=== PATIENT | male | born 1960 | race Caucasian/White ===

== ENCOUNTER 2018-03-12 16:58 | Inpatient (IN) | payer MEDICAID, OTHER ==
[2018-03-12 16:58] VITALS: BMI 26.6
[2018-03-12 19:09] LABS: BASO % 0.6 % (0.0-2.0); EOS # 0.4 K/uL (0.0-0.7); EOS % 5.5 % (0.0-4.0); HEMOGLOBIN 13.6 g/dL (12.0-18.0); LYMPH # 2.2 K/uL (1.0-4.3); LYMPH % 28.1 % (20.0-40.0); MEAN CORPUSCULAR HEMOGLOBIN 31.9 pg (27.0-31.0); MEAN CORPUSCULAR HGB CONC 33.2 g/dL (33.0-37.0); MEAN PLATELET VOLUME 7.4 fL (7.2-11.7); MONO # 0.4 K/uL (0.0-0.8); MONO % 5.4 % (0.0-10.0); NEUT # 4.6 K/uL (1.8-7.0); NEUT % 60.4 % (50.0-75.0); NRBC % 0.1 % (0.0-2.0); RBC 4.26 Mil/uL (4.40-5.90); RED CELL DISTRIBUTION WIDTH 12.6 % (11.5-14.5); WHITE BLOOD COUNT 7.7 K/uL (4.8-10.8)
--- NOTE | 2018-03-12 19:09 | C.PDOC ---
History Of Present Illness 57 y/o male presents to the ED requesting detox from heroin and cocaine. States he usually sniffs heroin, 30 bags daily for 10 years. Patient reports his last use was this morning. Otherwise he denies any physical complaints. Time Seen by Provider: 03/12/18 18:34 Chief Complaint (Nursing): Substance Abuse History Per: Patient History/Exam Limitations: no limitations Onset/Duration Of Symptoms: Days Current Symptoms Are (Timing): Still Present Suicide/Self Injury Attempted (Context): None Modifying Factor(s): Other (Heroin) Past Medical History Reviewed: Historical Data, Nursing Documentation, Vital Signs Vital Signs: Last Vital Signs Temp 98.2 F 03/12/18 17:02 Pulse 93 H 03/12/18 17:02 Resp 18 03/12/18 17:02 BP 108/70 03/12/18 17:02 Pulse Ox 97 03/12/18 19:10 - Medical History PMH: Denies: Diabetes, Hepatitis, HIV, HTN, Seizures, Sexually Transmitted Disease Other PMH: Heroin abuse - [facility] Procedures DETOXIFICATION SERVICES FOR SUBSTANCE ABUSE TREATMENT (02/03/16) GROUP PSYCHOTHERAPY (02/03/16) INJECT/INFUSE NEC (12/21/12) MEDICATION MANAGEMENT (02/03/16) MEDS MGMT FOR SUBSTANCE ABUSE TREATMENT, METHADONE MAINT (02/03/16) MEDS MGMT FOR SUBSTANCE ABUSE TREATMENT, OTH REPL MED (02/03/16) Family History: States: Unknown Family Hx - Social History Hx Tobacco Use: Yes Hx Alcohol Use: No Hx Substance Use: Yes - Immunization History Hx Tetanus Toxoid Vaccination: No Hx Influenza Vaccination: No Hx Pneumococcal Vaccination: No Review Of Systems Except As Marked, All Systems Reviewed And Found Negative. Constitutional: Negative for: Fever, Chills Gastrointestinal: Negative for: Nausea, Vomiting Psych: Positive for: Other (substance abuse). Negative for: Suicidal ideation, Withdrawal Physical Exam - Physical Exam Appears: Non-toxic, No Acute Distress Skin: Normal Color, Warm, Dry Head: Atraumatic, Normacephalic Eye(s): bilateral: Normal Inspection Oral Mucosa: Moist Neck: Normal ROM, Supple Chest: Symmetrical Cardiovascular: Rhythm Regular, No Murmur Respiratory: Normal Breath Sounds, No Rales, No Rhonchi, No Wheezing Gastrointestinal/Abdominal: Soft, No Tenderness, No Distention Extremity: Bilateral: Atraumatic, Normal Color And Temperature, Normal ROM Pulses: Left Radial: Normal, Right Radial: Normal Neurological/Psych: Oriented x3, Normal Speech ED Course And Treatment - Laboratory Results Result Diagrams: 03/12/18 19:03 03/12/18 19:03 Lab Interpretation: No Acute Changes O2 Sat by Pulse Oximetry: 97 (RA) Pulse Ox Interpretation: Normal Progress Note: Patient is medically cleared for a detox admission. Medical Decision Making Medical Decision Making: Impression: 57 y/o male requesting detox Plan: --CMP --CBC --UDS --UA --alcohol serum home mission worker to evaluate patient and screen for detox. Labs reviewed. Disposition - Disposition Disposition: HOSPITALIZED Disposition Time: 21:45 Condition: STABLE - POA Present On Arrival: None - Clinical Impression Clinical Impression: Opiate abuse, continuous - Scribe Statement The provider has reviewed the documentation as recorded by the Scribe (Loreto Gordon) Provider Attestation: All medical record entries made by the Scribe were at my direction and personally dictated by me. I have reviewed the chart and agree that the record accurately reflects my personal performance of the history, physical exam, medical decision making, and the department course for this patient. I have also personally directed, reviewed, and agree with the discharge instructions and disposition.
[2018-03-12 19:19] LABS: ALB/GLOB RATIO 1.2 (1.0-2.1); ALBUMIN 4.2 g/dL (3.5-5.0); CALCIUM 8.8 mg/dl (8.6-10.4); GFR AFRICAN-AMERICAN > 60; GFR NON-AFRICAN AMERICAN > 60
[2018-03-12 19:21] LABS: ALT/SGPT 20 U/L (21-72); AST/SGOT 27 U/L (17-59); BLOOD UREA NITROGEN 12 mg/dL (9-20)
[2018-03-12 20:47] LABS: URINE BACTERIA RARE (<OCC); URINE BILIRUBIN NEGATIVE (NEGATIVE); URINE BLOOD NEGATIVE (NEGATIVE); URINE CLARITY Clear (Clear); URINE COLOR Yellow (YELLOW); URINE GLUCOSE (UA) NORMAL (Normal); URINE LEUKOCYTE ESTERASE NEG Leu/uL (Negative); URINE PROTEIN NEGATIVE (NEGATIVE)
[2018-03-12 20:56] LABS: BARBITURATES, UR NEGATIVE (NEGATIVE); BENZODIAZEPINES, UR NEGATIVE (NEGATIVE); PHENCYCLIDINE, UR NEGATIVE (NEGATIVE)
[2018-03-12 20:57] LABS: OPIATES, UR POSITIVE (NEGATIVE)
--- NOTE | 2018-03-12 23:12 | PCM.BM ---
Treatment Plan Problems - Problems identified on initial assessmt potential for opiate withdrawal Date Initiated: 03/12/18 Time Initiated: 23:10 Status: Active Treatment assets and liabiliti Patient Assests: cognitively intact Patient Liabilities: substance abuse, medical problems - Milieu Protocol Maintain good personal hygiene: daily Encourage regular showers, daily Remind patient to perform daily oral care, daily Assist patient to perform ADL's Conduct patient checks and document Observation sheet: Q15 minutes Maintain personal safety: every shift Educate patient to report safety concerns to staff, every shift Monitor environment for contraband/sharps Medication safety: Monitor for expected outcome, potential side effects: every shift, Assess barriers to learning: every shift, Assess readiness for medication education: every shift
[2018-03-12] MEDS ORDERED: Aluminum Hydroxide/Magnesium Hydroxide Susp (30 mL) PO PRN (23:27)
[2018-03-12 23:41] VITALS: RESP 18
--- NOTE | 2018-03-13 12:54 | PCM.PSYCH ---
Initial Psychiatric Evaluation - Initial Psychiatric Evaluation Type of Admission: Voluntary Legal Status: Capacity Chief Complaint (in patient's own words): "I messed up" History of Present Illness and Precipitating Events: The pt is seen, chart reviewed and case discussed. He is known from a previous admission to detox. 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 He admits to using up to 40 bags of heroin a day intranasally. Started back in 1974 but this is his third detox. He was at [facility] few years ago but left early and blames their then-administration. He also used PCP, MJ and cocaine in the past but denies them now even though he is positive for cocaine. He claims it must be in the heroin bag. Denies psych sxs but he looks hypomanic and he likely has substance-induced mood symptoms He also has a history of binge drinking Past psych hx: Hx of depression and suicidality but not very recently, not on meds, denies SI now Medical hx: Denies Family psych hx: Denies Current Medications: Active Medications Generic Name Dose Route Start Last Admin Trade Name Freq PRN Reason Stop Dose Admin Al Hydrox/Mg Hydrox/Simethicone 30 ml 03/12/18 23:27 Maalox 30 Ml PO TID PRN Indigestion / Heartburn Clonidine HCl 0.1 mg 03/12/18 23:27 Catapres PO Q8 PRN COWS Score More or Equal to 5 Hydroxyzine HCl 25 mg 03/12/18 23:14 03/13/18 09:03 Atarax PO 25 mg Q6H PRN Administration Anxiety Ibuprofen 600 mg 03/12/18 23:14 Motrin Tab PO Q6H PRN Pain, moderate (4-7) Loperamide HCl 2 mg 03/12/18 23:27 Imodium PO Q8 PRN Diarrhea Ondansetron HCl 4 mg 03/12/18 23:27 Zofran Tab PO Q8 PRN Nausea/Vomiting Trazodone HCl 100 mg 03/12/18 23:14 Desyrel PO HS PRN Insomnia Past Psychiatric History - Past Psychiatric History Previous Treatment History: None Pertinent Medical Hx (Current Medical&Sleep Prob, Allergies): Allergies Allergy/AdvReac Type Severity Reaction Status Date / Time No Known Allergies Allergy Verified 09/17/16 15:01 No Known Home Med 03/12/18 Review of Systems - Neurological Neurological: Other - Psychiatric Psychiatric: Abnormal Sleep Pattern, Anxiety, Difficulty Concentrating, Irritability, Mood Swings. absent: Hallucinations, Homicidal Ideation, Suicidal Ideation Mental Status Examination - Personal Presentation Personal Presentation: Looks older than stated age - Affect Affect: Other (labile) - Motor Activity Motor Activity: Other (restless) - Reliability in Providing Information Reliability in Providing Information: Good - Speech Speech: Organized - Mood Mood: Depressed (mild), Anxious - Formal Thought Process Formal Thought Process: No Impairment - Cognitive Functions Orientation: Person, Place, Situation, Time Sensorium: Alert Attention/Concentration: Easily distracted Abstract Thinking: [place] Estimate of Intelligence: Average Judgement: Intact, as evidence by: Insight regarding need for hospitalization Memory: Recent intact, as evidence by: Ability to recall events of the day, Remote intact, as evidenced by: Abilit to recall sig. life events - Risk Risk: Withdrawal, Diminished functioning - Strength & Assets Inventory Strength & Assets Inventory: Cooperative - Limitations Limitations: Living alone DSM 5 DX - DSM 5 DSM 5 Diagnosis: Opioid withdrawal Opioid use disorder, severe Substance-induced mood disorder r/o personality disorder Cocaine use d/o - unspecified severity Alcohol use d/o - unspecified severity - Recommended/Plan of Treatment Treatment Recommendations and Plan of Treatment: Methadone detox As needed medications Gabapentin for augmentation if needed All risks, benefits and alternatives of medications, including no medications, discussed and the patient understood and agreed. Attend groups and activities Supportive therapy and psychoeducation [place] for abstinence CBT for relapse prevention Encourage MAT Refer to rehab or IOP Attend self-help groups as well [place] for smoking cessation and patch if needed 34 min Projected ELOS: 4-5 days - Smoking Cessation Smoking Cessation Initiated: Yes
--- NOTE | 2018-03-14 23:39 | PCM.PYCHPN ---
Psychiatric Progress Note - Psychiatric Progress Note Patient seen today, length of contact: 15 min Patient Chief Complaint: I am still withdrawing.' Problems Identified/Issues Discussed: Patient seen and evaluated, chart reviewed and discussed with the nurse. He reports improvement in his irritability. He still reports withdrawal symptoms. He denies any AVH or any paranoia. Patient is compliant with medications and denies any side effects. Symptoms are improving but need more time to stabilize. Support and psychoeducation given. Medication Change: Yes Medical Record Reviewed: Yes Mental Status Examination - Cognitive Function Orientation: Person, Place, Situation, Time Memory: Intact Attention: WNL Concentration: Poor Association: WNL Fund of Knowledge: Poor - Mood Mood: Depressed (mild), Anxious - Affect Affect: Constricted - Speech Speech: Soft - Formal Thought Process Formal Thought Process: No Impairment - Suicidal Ideation Suicidal Ideation: No - Homicidal Ideation Homicidal Ideation: No Goal/Treatment Plan - Goal/Treatment Plan Need for Continued Stay: Severe depression anxiety, Severe functional impairment Progress Toward Problem(s) and Goals/Treatment Plan: Opioid withdrawal Opioid use disorder, severe Substance-induced mood disorder r/o personality disorder Cocaine use d/o - unspecified severity Alcohol use d/o - unspecified severity Methadone detox As needed medications Gabapentin for augmentation if needed All risks, benefits and alternatives of medications, including no medications, discussed and the patient understood and agreed. Attend groups and activities Supportive therapy and psychoeducation [place] for abstinence CBT for relapse prevention Encourage MAT Refer to rehab or IOP Attend self-help groups as well [place] for smoking cessation and patch if needed - Smoking Cessation Smoking Cessation Initiated: No
--- NOTE | 2018-03-15 20:44 | PCM.PYCHPN ---
Psychiatric Progress Note - Psychiatric Progress Note Patient seen today, length of contact: 15 min Patient Chief Complaint: I'm feeling better with the treatment. Problems Identified/Issues Discussed: Patient seen, chart reviewed, case discussed with the staff. Issues related to illness and treatment were discussed with the patient and staff. Reported compliant with treatment with no adverse affects. Tolerating treatment very well. Calm and cooperative. Mood reported as good. Affect appropriate. Reported feeling much better. Aftercare discussed with the patient. Patient was awake, alert and oriented 3. Denied any delusions, auditory or visual hallucinations, suicidal ideations or homicidal ideations at the time of evaluation. Medical Problems: None reported Diagnostic Results: Reviewed DSM 5 Symptoms Update: Improving with treatment Medication Change: No Medical Record Reviewed: Yes Mental Status Examination - Cognitive Function Orientation: Person, Place, Situation, Time Memory: Intact Attention: WNL Concentration: WNL Association: WN Fund of Knowledge: [facility] Decription of patient's judgement and insights: Fair - Mood Mood: Neutral - Affect Affect: Other (Appropriate) - Speech Speech: Soft - Formal Thought Process Formal Thought Process: No Impairment Psychotic Thoughts and Behaviors: None - Suicidal Ideation Suicidal Ideation: No - Homicidal Ideation Homicidal Ideation: No Goal/Treatment Plan - Goal/Treatment Plan Need for Continued Stay: Remain at risks for inpatient hospitalization, Discharge may exacerbated symptoms, Severe functional impairment Progress Toward Problem(s) and Goals/Treatment Plan: Patient education. Supportive therapy. CBT for relapse prevention. [place] for abstinence. Continue treatment as before. Estimated Date of D/C: 03/16/18 - Smoking Cessation Smoking Cessation Initiated: No
[2018-03-16 09:13] VITALS: BP 99/64; PULSE 64; TEMP 98.4; O2SAT 98
--- NOTE | 2018-03-16 17:49 | PCM.PYCHDC ---
Mental Status Examination - Mental Status Examination Orientation: Person, Place, Situation, Time Memory: Intact Mood: Neutral Affect: Other (Appropriate) Speech: Appropriate Attention: WNL Concentration: WNL Association: WNL Fund of Knowledge: WNL Formal Thought Process: No Impairment Description of patient's judgement and insight: Fair Psychotic Thoughts and Behaviors: None Suicidal Ideation: No Current Homicidal Ideation?: No Discharge Summary - Discharge Note Reason for Hospitalization: Opiate use disorder severe Cocaine use disorder Alcohol use disorder Substance-induced mood disorder Laboratory Data: Reviewed Consultations:: List each consultation separately and include: 1. Reason for request. 2. Findings. 3. Follow-up Summary of Hospital Course include:: 1. Description of specific treatment plan utilized for patients during their course of treatmen. 2. Summarize the time- course for resolution of acute symptoms and/or regressed behaviors. 3. Describe issues identified and worked on during hospitalization. 4. Describe medication utilized. 5. Describe medical problems identified and treated. 6. 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 He admits to using up to 40 bags of heroin a day intranasally. Started back in 1974 but this is his third detox. He was at [facility] few years ago but left early and blames their then-administration. He also used PCP, MJ and cocaine in the past but denies them now even though he is positive for cocaine. He claims it must be in the heroin bag. Denies psych sxs but he looks hypomanic and he likely has substance-induced mood symptoms He also has a history of binge drinking Past psych hx: Hx of depression and suicidality but not very recently, not on meds, denies SI now During his stay in the hospital patient was treated with methadone taper for opiate withdrawal symptoms. He was also started on other when necessary medications. Patient also attended groups during his stay on the unit. With the above treatment and interventions patient started feeling better. Today patient was stable and ready for discharge. At the time of evaluation and discharge, patient was stable, had no delusions, no auditory or visual hallucinations, no suicidal ideations or homicidal ideations. Patient was discharged in a stable condition. Patient will have follow-up with his doctor, Dr. Suarez. - Final Diagnosis (DSM 5) Condition upon Discharge: STABLE Disposition: HOME/ ROUTINE Follow-up Treatment Plan: With Dr. Suarez Prescriptions/Medication Reconciliation: traZODone [Desyrel] 100 mg PO HS PRN #30 tab PRN Reason: Insomnia - Smoking Cessation Smoking Cessation Medication prescribed: No - Antipsychotic Medications Pt discharged on 2 or more routine antipsychotic medications: No
== END 2018-03-16 13:30 | disposition home or self-care (01) | DRG 745 ==
LOC: C.ER 16:58 → C.9E 21:44 → C.7D 22:22
PROVIDERS: ADMIT Psychiatry & Neurology Psychiatry; ATTEND Psychiatry & Neurology Psychiatry
PROC: HZ2ZZZZ Detoxification Services for Substance Abuse Treatment (ICD-10-PCS; principal; 2018-03-12)
PROC: HZ59ZZZ Individual Psychotherapy for Substance Abuse Treatment, Supportive (ICD-10-PCS; 2018-03-12)
PROC: HZ46ZZZ Group Counseling for Substance Abuse Treatment, Psychoeducation (ICD-10-PCS; 2018-03-12)
PROC: GZ3ZZZZ Medication Management (ICD-10-PCS; 2018-03-12)
PROC: HZ80ZZZ Medication Management for Substance Abuse Treatment, Nicotine Replacement (ICD-10-PCS; 2018-03-12)
DX: F11.23 Opioid dependence with withdrawal (principal); F10.10 Alcohol abuse, uncomplicated; F14.10 Cocaine abuse, uncomplicated; F17.210 Nicotine dependence, cigarettes, uncomplicated; F11.24 Opioid dependence with opioid-induced mood disorder

== ENCOUNTER 2018-08-28 13:39 | Inpatient (IN) | payer MEDICAID ==
[2018-08-28 14:14] VITALS: BMI 23.6
[2018-08-28 14:42] LABS: BASO % 0.6 % (0.0-2.0); EOS # 0.4 K/uL (0.0-0.7); EOS % 9.1 % (0.0-4.0); HEMOGLOBIN 13.4 g/dL (12.0-18.0); LYMPH # 1.5 K/uL (1.0-4.3); LYMPH % 32.4 % (20.0-40.0); MEAN CELL VOLUME 97.8 fL (80.0-94.0); MEAN CORPUSCULAR HEMOGLOBIN 31.8 pg (27.0-31.0); MEAN CORPUSCULAR HGB CONC 32.5 g/dL (33.0-37.0); MEAN PLATELET VOLUME 7.1 fL (7.2-11.7); MONO # 0.4 K/uL (0.0-0.8); MONO % 9.2 % (0.0-10.0); NEUT # 2.2 K/uL (1.8-7.0); NEUT % 48.7 % (50.0-75.0); NRBC % 0.1 % (0.0-2.0); RBC 4.22 Mil/uL (4.40-5.90); RED CELL DISTRIBUTION WIDTH 12.8 % (11.5-14.5); WHITE BLOOD COUNT 4.5 K/uL (4.8-10.8)
[2018-08-28 14:48] LABS: SQUAMOUS EPITHIAL < 1 /hpf (0-5); URINE BILIRUBIN NEGATIVE (NEGATIVE); URINE BLOOD NEGATIVE (NEGATIVE); URINE CLARITY Clear (Clear); URINE COLOR Yellow (YELLOW); URINE GLUCOSE (UA) NORMAL (Normal); URINE LEUKOCYTE ESTERASE NEG Leu/uL (Negative); URINE PROTEIN NEGATIVE (NEGATIVE); URINE UROBILINOGEN NORMAL mg/dL (0.2-1.0)
[2018-08-28 14:55] LABS: ALB/GLOB RATIO 1.5 (1.0-2.1); ALBUMIN 4.5 g/dL (3.5-5.0); ALT/SGPT 18 U/L (21-72); AST/SGOT 26 U/L (17-59); BLOOD UREA NITROGEN 16 mg/dL (9-20); CALCIUM 8.6 mg/dl (8.6-10.4); GFR NON-AFRICAN AMERICAN > 60
[2018-08-28 15:34] LABS: BARBITURATES, UR NEGATIVE (NEGATIVE); BENZODIAZEPINES, UR NEGATIVE (NEGATIVE); PHENCYCLIDINE, UR NEGATIVE (NEGATIVE)
--- NOTE | 2018-08-28 16:06 | C.PDOC ---
History Of Present Illness 58 y/o male with a PMHx of heroin abuse, presents to the ED requesting detox. He last used this morning, via sniffing, denies IV drug abuse. States his last detox was 2 years ago. No withdrawal symptoms at present. He denies any SI/HI, fevers, cold sweats, tremors, bodyaches, or other associated complaints. Time Seen by Provider: 08/28/18 14:23 Chief Complaint (Nursing): Substance Abuse History Per: Patient History/Exam Limitations: no limitations Onset/Duration Of Symptoms: Days Current Symptoms Are (Timing): Still Present Modifying Factor(s): Other (Heroin) Past Medical History Reviewed: Historical Data, Nursing Documentation, Vital Signs Vital Signs: Last Vital Signs Temp 99 F 08/28/18 14:14 Pulse 81 08/28/18 14:14 Resp 18 08/28/18 14:14 BP 112/77 08/28/18 14:14 Pulse Ox 98 08/28/18 14:14 - Medical History PMH: Denies: Diabetes, Hepatitis, HIV, HTN, Seizures, Sexually Transmitted Disease Other Surgeries: Amputation left digit - [facility] Procedures DETOXIFICATION SERVICES FOR SUBSTANCE ABUSE TREATMENT (03/12/18) GROUP TEACHER ASST FOR SUBSTANCE ABUSE TREATMENT, PSYCHOEDUCATION (03/12/18) GROUP PSYCHOTHERAPY (02/03/16) INDIV PSYCHOTHERAPY FOR SUBSTANCE ABUSE TREATMENT, SUPPORT (03/12/18) INJECT/INFUSE NEC (12/21/12) MEDICATION MANAGEMENT (03/12/18) MEDS MGMT FOR SUBSTANCE ABUSE TREATMENT, METHADONE MAINT (02/03/16) MEDS MGMT FOR SUBSTANCE ABUSE TREATMENT, NICOTINE REPLACE (03/12/18) MEDS MGMT FOR SUBSTANCE ABUSE TREATMENT, OTH REPL MED (02/03/16) Family History: States: Unknown Family Hx - Social History Hx Tobacco Use: Yes Hx Alcohol Use: Yes Hx Substance Use: Yes (heroin) - Immunization History Hx Tetanus Toxoid Vaccination: No Hx Influenza Vaccination: No Hx Pneumococcal Vaccination: No Review Of Systems Constitutional: Negative for: Fever, Chills Cardiovascular: Negative for: Palpitations Respiratory: Negative for: Shortness of Breath Gastrointestinal: Negative for: Nausea, Vomiting Musculoskeletal: Negative for: Other (tremors) Neurological: Negative for: Weakness, Headache Psych: Positive for: Other (Substance abuse). Negative for: Suicidal ideation, Withdrawal Physical Exam - Physical Exam Appears: Non-toxic, No Acute Distress Skin: Warm, Dry Head: Atraumatic, Normacephalic Eye(s): bilateral: Normal Inspection, PERRL, EOMI Neck: Normal ROM Chest: Symmetrical Cardiovascular: Rhythm Regular, No Murmur Respiratory: Normal Breath Sounds, No Accessory Muscle Use, Other (Speaking in full sentences) Gastrointestinal/Abdominal: Soft, No Tenderness, No Distention Extremity: Bilateral: Atraumatic, Normal Color And Temperature Neurological/Psych: Oriented x3 Gait: Steady ED Course And Treatment - Laboratory Results Result Diagrams: 08/28/18 14:39 08/28/18 14:39 Lab Results: Total Bilirubin 0.4 mg/dL (0.2-1.3) 08/28/18 14:39 AST 26 U/L (17-59) 08/28/18 14:39 ALT 18 U/L (21-72) L 08/28/18 14:39 Alkaline Phosphatase 56 U/L (38-126) 08/28/18 14:39 Total Protein 7.5 g/dL (6.3-8.3) 08/28/18 14:39 Albumin 4.5 g/dL (3.5-5.0) 08/28/18 14:39 Globulin 3.0 gm/dL (2.2-3.9) 08/28/18 14:39 Albumin/Globulin Ratio 1.5 (1.0-2.1) 08/28/18 14:39 Urine Color Yellow (YELLOW) 08/28/18 14:39 Urine Clarity Clear (Clear) 08/28/18 14:39 Urine pH 5.0 (5.0-8.0) 08/28/18 14:39 Ur Specific [place] 1.023 (1.003-1.030) 08/28/18 14:39 Urine Protein Negative mg/dL (NEGATIVE) 08/28/18 14:39 Urine Glucose (UA) Normal mg/dL (Normal) 08/28/18 14:39 Urine Ketones Negative mg/dL (NEGATIVE) 08/28/18 14:39 Urine Blood Negative (NEGATIVE) 08/28/18 14:39 Urine Nitrate Negative (NEGATIVE) 08/28/18 14:39 Urine Bilirubin Negative (NEGATIVE) 08/28/18 14:39 Urine Urobilinogen Normal mg/dL (0.2-1.0) 08/28/18 14:39 Ur Leukocyte Esterase Neg Isaias/uL (Negative) 08/28/18 14:39 Urine WBC (Auto) 1 /hpf (0-5) 08/28/18 14:39 Urine RBC (Auto) < 1 /hpf (0-3) 08/28/18 14:39 Ur Squamous Epith Cells < 1 /hpf (0-5) 08/28/18 14:39 O2 Sat by Pulse Oximetry: 98 (RA) Pulse Ox Interpretation: Normal Medical Decision Making Medical Decision Making: Plan: Labs ordered for medical clearance. Crisis eval pending. 16:15 medically cleared for psych placement 16:[address] Escalante for opioid use disorder. Disposition Counseled Patient/Family Regarding: Studies Performed, Diagnosis - Disposition Disposition: HOSPITALIZED Disposition Time: 16:34 Condition: STABLE Forms: [facility] (Italian) - POA Present On Arrival: None - Clinical Impression Clinical Impression: Cocaine abuse, Opiate abuse, continuous - Scribe Statement The provider has reviewed the documentation as recorded by the Mell Gordon Provider Attestation: All medical record entries made by the Michelleibaudrey were at my direction and personally dictated by me. I have reviewed the chart and agree that the record accurately reflects my personal performance of the history, physical exam, medical decision making, and the department course for this patient. I have also personally directed, reviewed, and agree with the discharge instructions and disposition.
[2018-08-28 16:09] LABS: OPIATES, UR POSITIVE (NEGATIVE)
--- NOTE | 2018-08-28 16:51 | PCM.BM ---
<Alayna Albarado - Last Filed: 08/28/18 16:50> Treatment Plan Problems - Problems identified on initial assessmt Denial Date Initiated: 08/28/18 Time Initiated: 16:50 Assessment reference: NA Status: Active Defensive Coping Date Initiated: 08/28/18 Time Initiated: 16:50 Assessment reference: NA Status: Active Chronic Low Self Esteem Date Initiated: 08/28/18 Time Initiated: 16:51 Assessment reference: NA Status: Active Treatment assets and liabiliti Patient Assests: ADL independent, good support system, negotiates basic needs, cognitively intact Patient Liabilities: substance abuse (Heroin, cocaine), other (homelessness) - Milieu Protocol Maintain good personal hygiene: daily Encourage regular showers, daily Remind patient to perform daily oral care, daily Assist patient to perform ADL's Conduct patient checks and document Observation sheet: Q15 minutes Maintain personal safety: every shift Educate patient to report safety concerns to staff, every shift Monitor environment for contraband/sharps Medication safety: Monitor for expected outcome, potential side effects: every shift, Assess barriers to learning: every shift, Assess readiness for medication education: every shift <Elizabeth Mari - Last Filed: 08/29/18 14:30> Family Contact Family involvement: No known Family/SO - Goals for Treatment Patient goals for treatment: Complete detox and transition to a long-term inpatient program." Discharge/Continuing Care - Education Needs Education Needs: Patient Medication, Patient Diagnosis/Disease Process, Patient Coping Skills, Patient Anger Management skills, Patient Placement options, Patient Community resources - Discharge Discharge Criteria: Ability to care for self, No longer exhibiting s/s of withdrawal, Reduction of target symptoms Discharge to:: Substance Abuse Rehab - Treatment Team Participation Patient/Family/SO Statement: 08/29/18 14:30 "I wanna try the [facility] in [place] but not the one in [place]." Discussed with Family/SO: No Was Patient/Family/SO present at Treatment Team Meeting: Yes
[2018-08-28] MEDS ORDERED: Aluminum Hydroxide/Magnesium Hydroxide Susp (30 mL) PO PRN (19:10)
[2018-08-29] MEDS: Multiple Vitamins Tab PO SCH (09:14)
--- NOTE | 2018-08-29 16:20 | PCM.PSYCH ---
Initial Psychiatric Evaluation - Initial Psychiatric Evaluation Type of Admission: Voluntary Legal Status: Capacity Chief Complaint (in patient's own words): I need help for my substance use. History of Present Illness and Precipitating Events: Patient is a 58 years old, single, unemployed, homeless, -[place] male who was admitted due to withdrawing from heroine. Patient was poor historian. Most of the history obtained from the previous record. Opioid: Patient reported he started using heroin in 1974 at 15 years of age, increased gradually. Currently he was using 30 bags daily, sniffing. Last used yesterday, 2 bags. Longest period of abstinence for 7 months in 2018. History of 3 previous detox at [facility]. Patient was in [place] for about 3 months in the past but left [facility] blaming that administration was not doing well. Cocaine: He started using cocaine at 15 years of age, 1 g daily, sniffing. Last used yesterday. Patient also has history of binge drinking and cannabis and PCP use in the past but patient denied. According to old record, patient also had history of depression and suicidal attempts in the past but patient denied. Patient smokes half pack of cigarettes daily, denying nicotine patch. Patient was arrested in the past for credit card and driving license fraud and heroin charges. Not on probation. Patient was born in [place] and has 12th grade of education. Not working for last 1 year. Was working in construction. Patient is single and has no children. Currently homeless for last 1 year. His height is 5 feet 9 inches and weight is 162 pounds. Current Medications: Active Medications Generic Name Dose Route Start Last Admin Trade Name Freq PRN Reason Stop Dose Admin Al Hydrox/Mg Hydrox/Simethicone 30 ml 08/28/18 19:10 Maalox 30 Ml PO TID PRN Indigestion / Heartburn Clonidine HCl 0.1 mg 08/28/18 19:10 Catapres PO Q4 PRN COWS Score More or Equal to 5 Dicyclomine HCl 10 mg 08/28/18 19:10 Bentyl PO Q6 PRN Muscle spasm Folic Acid 1 mg 08/29/18 10:00 08/29/18 09:14 Folic Acid PO 1 mg DAILY LEATHA Administration Hydroxyzine HCl 25 mg 08/28/18 19:06 08/28/18 21:15 Atarax PO 25 mg Q6 PRN Administration Anxiety Loperamide HCl 2 mg 08/28/18 19:10 Imodium PO Q8 PRN Diarrhea Methadone HCl 20 mg 08/29/18 10:00 08/29/18 09:14 Methadone PO 09/02/18 09:59 20 mg Q24H LEATHA Administration Taper Multivitamins 1 tab 08/29/18 10:00 08/29/18 09:14 Hexavitamin PO 1 tab DAILY LEATHA Administration Ondansetron HCl 4 mg 08/28/18 19:10 Zofran Tab PO Q8 PRN Nausea/Vomiting Pseudoephedrine HCl 60 mg 08/28/18 19:10 Sudafed Tab PO QID PRN Nasal/Sinus Congestion Thiamine HCl 100 mg 08/29/18 10:00 08/29/18 09:14 Vitamin B1 Tab PO 100 mg DAILY LEATHA Administration Trazodone HCl 50 mg 08/28/18 19:11 08/28/18 21:15 Desyrel PO 50 mg HS PRN Administration Insomnia Past Psychiatric History - Past Psychiatric History Previous Treatment History: Inpatient Prior Professional Help: 3 previous detox At [facility]: [facility] Nature of Treatment: Inpatient detox History of Abuse: None reported History of ETOH/Drug Use: See HPI History of Family Illness: Reported his brother has history of heroin use. Pertinent Medical Hx (Current Medical&Sleep Prob, Allergies): Allergies Allergy/AdvReac Type Severity Reaction Status Date / Time No Known Allergies Allergy Verified 08/28/18 14:12 No Known Home Med 08/28/18 Review of Systems - Psychiatric Psychiatric: As Per HPI, Anxiety, Other Mental Status Examination - Personal Presentation Personal Presentation: Looks stated age - Affect Affect: Other (Appropriate) - Motor Activity Motor Activity: Calm - Reliability in Providing Information Reliability in Providing Information: Fair - Speech Speech: Relevant - Mood Mood: Anxious - Formal Thought Process Formal Thought Process: No Impairment - Hallucinations/Delusions Hallucinations: Other (None reported) Delusions: Other - Obsessions/Compulsions Obsessions: None Compulsions: None - Cognitive Functions Orientation: Person, Place, Situation, Time Sensorium: Alert Attention/Concentration: Attentive Abstract Thinking: [place] Estimate of Intelligence: Average Judgement: Intact, as evidence by: Insight regarding need for hospitalization Memory: Recent intact, as evidence by: Ability to recall events of the day, Remote intact, as evidenced by: Ability to recall historical events - Risk Risk: Withdrawal, Diminished functioning - Strength & Assets Inventory Strength & Assets Inventory: Cooperative - Limitations Limitations: Other (Homeless) DSM 5 DX - DSM 5 DSM 5 Diagnosis: Opioid withdrawal. Opioid use disorder severe. Cocaine use disorder severe. - Recommended/Plan of Treatment Treatment Recommendations and Plan of Treatment: Patient education. Supportive therapy. CBT for relapse prevention. ME for abstinence. Will start methadone taper for opioid withdrawal symptoms. Other PRN medication. Projected ELOS: 4-5 days Discharge Plan and Discharge Criteria: No withdrawals, - Smoking Cessation Smoking Cessation Initiated: No Reason for not providing: Patient refused
--- NOTE | 2018-08-29 16:32 | RAD ---
Date of service: 08/29/2018 HISTORY: rehab COMPARISON: No prior. TECHNIQUE: Chest PA and lateral FINDINGS: LUNGS: No active pulmonary disease. PLEURA: No significant pleural effusion identified. No pneumothorax apparent. CARDIOVASCULAR: No aortic atherosclerotic calcification present. Normal cardiac size. No pulmonary vascular congestion. OSSEOUS STRUCTURES: No significant abnormalities. VISUALIZED UPPER ABDOMEN: Normal. OTHER FINDINGS: None. IMPRESSION: No acute cardiopulmonary disease appreciated.
[2018-08-30] MEDS: Multiple Vitamins Tab PO SCH (09:37)
[2018-08-30] MEDS ORDERED: Magnesium Hydroxide Susp 30 ml UD PO ONE (13:00)
[2018-08-31] MEDS: Multiple Vitamins Tab PO SCH (09:16)
[2018-08-31 19:29] VITALS: RESP 18
--- NOTE | 2018-09-01 09:02 | PCM.PYCHDC ---
Mental Status Examination - Mental Status Examination Orientation: Person Discharge Summary - Discharge Note Psychiatric History (includes Medical, Family, Personal Hx): Inpatient detox Consultations:: List each consultation separately and include: 1. Reason for request. 2. Findings. 3. Follow-up Summary of Hospital Course include:: 1. Description of specific treatment plan utilized for patients during their course of treatmen. 2. Summarize the time- course for resolution of acute symptoms and/or regressed behaviors. 3. Describe issues identified and worked on during hospitalization. 4. Describe medication utilized. 5. Describe medical problems identified and treated. 6. Reassessment of suicide risk Summary of Hospital Course: He will go to [facility] in [facility]. - Final Diagnosis (DSM 5) Condition upon Discharge: STABLE Disposition: HOME/ ROUTINE Prescriptions/Medication Reconciliation: traZODone [Desyrel] 50 mg PO HS PRN #30 tab PRN Reason: Insomnia
[2018-09-01 09:04] VITALS: BP 113/72; PULSE 67; TEMP 97.6; O2SAT 99
[2018-09-01] MEDS: Multiple Vitamins Tab PO SCH (09:16)
== END 2018-09-01 11:25 | disposition home or self-care (01) | DRG 745 ==
LOC: C.ER 13:39 → C.7D 16:33
PROVIDERS: ADMIT Psychiatry & Neurology Psychiatry; ATTEND Psychiatry & Neurology Psychiatry
PROC: HZ2ZZZZ Detoxification Services for Substance Abuse Treatment (ICD-10-PCS; principal; 2018-08-28)
PROC: HZ81ZZZ Medication Management for Substance Abuse Treatment, Methadone Maintenance (ICD-10-PCS; 2018-08-28)
PROC: HZ46ZZZ Group Counseling for Substance Abuse Treatment, Psychoeducation (ICD-10-PCS; 2018-08-28)
PROC: HZ59ZZZ Individual Psychotherapy for Substance Abuse Treatment, Supportive (ICD-10-PCS; 2018-08-28)
DX: F11.23 Opioid dependence with withdrawal (principal); F14.20 Cocaine dependence, uncomplicated; F17.210 Nicotine dependence, cigarettes, uncomplicated; Z59.0 Homelessness